=== PATIENT | female | born 1950 | race Native Hawaiian/Other Pacific Islander ===

== ENCOUNTER 2019-01-11 15:24 | Outpatient (CLI) | payer OTHER ==
[2019-01-11 15:54] LABS: PLATELET COUNT 222 K/uL (152-353)
[2019-01-11 16:16] LABS: POTASSIUM 4.8 mmol/L (3.6-5.2)
== END 2019-01-11 23:03 | disposition home or self-care (01) ==
LOC: LAB 15:24
PROVIDERS: Nurse Practitioner Family
DX: Z00.00 Encounter for general adult medical examination without abnormal findings (principal); I95.89 Other hypotension; F17.200 Nicotine dependence, unspecified, uncomplicated; Z87.898 Personal history of other specified conditions; R53.83 Other fatigue; R53.81 Other malaise; E55.9 Vitamin D deficiency, unspecified; Z79.899 Other long term (current) drug therapy
CPT/HCPCS: 80053; 80061; 82306; 83036; 84439; 84443; 85027

== ENCOUNTER 2019-01-25 08:35 | Outpatient (CLI) | payer OTHER | END 2019-01-25 08:58 | disposition short-term general hospital (02) | LOC: AMB 08:35 | DX: R56.9 Unspecified convulsions (principal) | CPT/HCPCS: A0425; A0427 ==

== ENCOUNTER 2019-09-25 09:47 | Outpatient (CLI) | payer OTHER | END 2019-09-25 19:24 | disposition home or self-care (01) | LOC: CT 09:47 | DX: R41.82 Altered mental status, unspecified (principal); R68.89 Other general symptoms and signs ==

== ENCOUNTER 2020-04-03 10:59 | Outpatient (CLI) | payer OTHER ==
[2020-04-03 11:35] LABS: POTASSIUM 4.7 mmol/L (3.6-5.2)
[2020-04-03 11:38] LABS: PLATELET COUNT 237 K/uL (152-353)
== END 2020-04-03 20:21 | disposition home or self-care (01) ==
LOC: LABW 10:59
PROVIDERS: ATTEND Surgery Vascular Surgery
DX: Z01.812 Encounter for preprocedural laboratory examination (principal); R42 Dizziness and giddiness
CPT/HCPCS: 36415; 80048; 85027

== ENCOUNTER 2020-08-26 13:51 | Emergency (ER) | payer OTHER ==
[~2020-08-26] VITALS: Ht 162.6 cm; Wt 73.0 kg
[2020-08-26 14:08] VITALS: BP 142/74; TEMP 99
[2020-08-26 15:49] LABS: PLATELET COUNT 272 K/uL (152-353)
[2020-08-26 15:59] LABS: POTASSIUM 4.2 mmol/L (3.6-5.2); SODIUM 138 mmol/L (136-145)
== END 2020-08-26 17:22 | disposition home or self-care (01) ==
LOC: ED 13:51
PROVIDERS: Emergency Medicine
PROC: 2W3DX1Z Immobilization of Left Lower Arm using Splint (ICD-10-PCS; principal; 2020-08-26)
DX: S63.592A Other specified sprain of left wrist, initial encounter (principal); R42 Dizziness and giddiness; R55 Syncope and collapse; W18.39XA Other fall on same level, initial encounter; Y92.89 Other specified places as the place of occurrence of the external cause
CPT/HCPCS: 80053; 82550; 83880; 84484; 85027; 93005; 99283